=== PATIENT | female | born 1965 | race Caucasian/White ===

== ENCOUNTER 2017-03-09 14:50 | Emergency (ER) | payer OTHER ==
[2017-03-09] MEDS ORDERED: NS 1,000 ML IV ONE (16:06)
--- NOTE | 2017-03-09 16:10 | EDPHY ---
H & P Stated Complaint: [place],not feeling well since going to [facility] Time Seen by Provider: 03/09/17 15:34 HPI/ROS: CHIEF COMPLAINT: Lightheaded HISTORY OF PRESENT ILLNESS: The patient is a 51-year-old female who is been feeling fatigued and lightheaded intermittently since arriving here from [place] 1 week ago. She states that her symptoms seem to correlate with altitude. She has gone to [facility] twice and this is when her symptoms seem to worsen the most. They also worsened with exertion. Today she was walking around the [employer] [place] and had similar symptoms. She denies chest pain or shortness of breath. She denies leg pain or swelling. She denies nausea vomiting or diarrhea. She denies headache. He has no recent fevers or illnesses. No sick contacts. No trauma. REVIEW OF SYSTEMS: Constitutional: denies: chills, fever, recent illness, recent injury EENTM: denies: blurred vision, double vision, nose congestion Respiratory: denies: cough, shortness of breath Cardiac: See HPI, denies: chest pain, irregular heart rate, palpitations Gastrointestinal/Abdominal: denies: abdominal pain, diarrhea, nausea, vomiting, blood streaked stools Genitourinary: denies: dysuria, frequency, hematuria, pain Musculoskeletal: denies: joint pain, muscle pain Skin: denies: lesions, rash, jaundice, bruising Neurological: denies: headache, numbness, paresthesia, tingling, dizziness, weakness Hematologic/Lymphatic: denies: blood clots, easy bleeding, easy bruising Immunologic/allergic: denies: HIV/AIDS, transplant EXAM: GENERAL: Well-appearing, well-nourished and in no acute distress. HEAD: Atraumatic, normocephalic. EYES: Pupils equal round and reactive to light, extraocular movements intact, sclera anicteric, conjunctiva are normal. ENT: TMs normal, nares patent, oropharynx clear without exudates. Moist mucous membranes. NECK: Normal range of motion, supple without lymphadenopathy or JVD. LUNGS: Breath sounds clear to auscultation bilaterally and equal. No wheezes rales or rhonchi. HEART: Regular rate and rhythm without murmurs, rubs or gallops. ABDOMEN: Soft, nontender, normoactive bowel sounds. No guarding, no rebound. No masses appreciated. BACK: No CVA tenderness, no spinal tenderness, step-offs or deformities EXTREMITIES: Normal range of motion, no pitting or edema. No clubbing or cyanosis. NEUROLOGICAL: Cranial nerves II through XII grossly intact. Normal speech, normal gait. 5/5 strength, normal movement in all extremities, normal sensation PSYCH: Normal mood, normal affect. SKIN: Warm, dry, normal turgor, no visible rashes or lesions. Source: Patient Exam Limitations: No limitations - Personal History LMP (Females 10-55): Post Menopausal Current Tetanus Diphtheria and Acellular Pertussis (TDAP): Yes - Medical/Surgical History Hx Asthma: No Hx Chronic Respiratory Disease: No Hx Diabetes: No Hx Cardiac Disease: No Hx Renal Disease: No Hx Cirrhosis: No Hx Alcoholism: No Other PMH: thyroid - Family History Significant Family History: No pertinent family hx - Social History Smoking Status: Never smoked Alcohol Use: Sober Drug Use: None Constitutional: Initial Vital Signs Temperature (C) 36.7 C 03/09/17 15:00 Heart Rate 73 03/09/17 15:00 Respiratory Rate 18 03/09/17 15:00 Blood Pressure 152/77 H 03/09/17 15:00 O2 Sat (%) 98 03/09/17 15:00 O2 Delivery Mode Room Air Allergies/Adverse Reactions: Penicillins Allergy (Intermediate, Verified 03/09/17 15:08) Hives Home Medications: Medication Instructions Recorded Levothyroxine [Synthroid 100 mcg 100 mcg PO DAILY06 03/09/17 (*)] Medical Decision Making - Diagnostics EKG Interpretation: An EKG obtained and was read and documented in trace view. Please see trace view for full reading and report. Sinus rhythm, no acute ischemic changes Imaging Results: Imaging Impressions Chest X-Ray 03/09/17 16:06 Impression: Mild peribronchial thickening suggesting airways disease/bronchitis. Imaging: Discussed imaging studies w/ meter/relay craftsman Radiologist, I viewed and interpreted images myself ED Course/Re-evaluation: We discussed the test in x-ray results. I suspect the patient has a very mild form of inflammatory reaction to the high-altitude. She has not had a fever or productive cough. No recent infections or illness. She does not have any history of asthma or COPD. I will give her a dose of Decadron and treat her with albuterol symptomatically. She leaves tomorrow to go [place]. We discussed indications for returning and the importance of follow-up. Differential Diagnosis: Partial list of the Differential diagnosis considered include but were not limited to; bronchitis, pneumonia, PE, high-altitude pulmonary edema and although unlikely based on the history and physical exam, I also considered acute coronary disease, arrhythmia, pneumothorax, CVA. I discussed these differential diagnoses and the plan with the patient as well as the usual and expected course. The patient understands that the diagnosis is provisional and that in medicine we are not always correct and that further workup is often warranted. Usual and customary warnings were given. All of the patient's questions were answered. The patient was instructed to return to the emergency department should the symptoms at all worsen or return, otherwise to followup with the physician as we discussed. - Data Points Laboratory Results: Laboratory Results 03/09/17 16:15 03/09/17 16:15 03/09/17 03/09/17 03/09/17 16:15 16:15 16:15 WBC 5.44 10^3/uL 10^3/uL (3.80-9.50) RBC 5.20 10^6/uL 10^6/uL (4.18-5.33) Hgb 15.2 g/dL g/dL (12.6-16.3) Hct 45.2 % % (38.0-47.0) MCV 86.9 fL fL (81.5-99.8) MCH 29.2 pg pg (27.9-34.1) MCHC 33.6 g/dL g/dL (32.4-36.7) RDW 12.8 % % (11.5-15.2) Plt Count 323 10^3/uL 10^3/uL (150-400) MPV 10.0 fL fL (8.7-11.7) Neut % (Auto) 67.2 % % (39.3-74.2) Lymph % (Auto) 21.7 % % (15.0-45.0) Cameron % (Auto) 9.7 % % (4.5-13.0) Eos % (Auto) 0.6 % % (0.6-7.6) Baso % (Auto) 0.4 % % (0.3-1.7) Nucleat RBC Rel Count 0.0 % % (0.0-0.2) Absolute Neuts (auto) 3.66 10^3/uL 10^3/uL (1.70-6.50) Absolute Lymphs (auto) 1.18 10^3/uL 10^3/uL (1.00-3.00) Absolute Monos (auto) 0.53 10^3/uL 10^3/uL (0.30-0.80) Absolute Eos (auto) 0.03 10^3/uL 10^3/uL (0.03-0.40) Absolute Basos (auto) 0.02 10^3/uL 10^3/uL (0.02-0.10) Absolute Nucleated RBC 0.00 10^3/uL 10^3/uL (0-0.01) Immature Gran % 0.4 % % (0.0-1.1) Immature Gran # 0.02 10^3/uL 10^3/uL (0.00-0.10) D-Dimer < 0.27 ug/mLFEU ug/mLFEU (0.00-0.50) Sodium 141 mEq/L mEq/L (134-144) Potassium 3.8 mEq/L mEq/L (3.5-5.2) Chloride 101 mEq/L mEq/L (97-110) Carbon Dioxide 27 mEq/l mEq/l (22-31) Anion Gap 13 mEq/L mEq/L (8-16) BUN 16 mg/dL mg/dL (7-23) Creatinine 0.9 mg/dL mg/dL (0.6-1.0) Estimated GFR > 60 Glucose 102 mg/dL H mg/dL (70-100) Calcium 10.0 mg/dL mg/dL (8.5-10.4) Troponin I < 0.012 ng/mL ng/mL (0-0.034) Medications Given: Discontinued Medications Albuterol Sulfate (Proventil Inh Prepack) 1 mdi TAKEHOME EDNOW ONE Stop: 03/09/17 16:54 Last Admin: 03/09/17 17:30 Dose: 1 mdi Albuterol/Ipratropium (Duoneb) 3 ml IH EDNOW ONE Stop: 03/09/17 16:54 Last Admin: 03/09/17 17:05 Dose: 3 ml Dexamethasone (Decadron) 10 mg PO EDNOW ONE Stop: 03/09/17 16:54 Last Admin: 03/09/17 16:59 Dose: 10 mg Sodium Chloride (Ns) 1,000 mls @ 0 mls/hr IV ONCE ONE; Wide Open PRN Reason: Protocol Stop: 03/09/17 16:07 Last Admin: 03/09/17 16:19 Dose: 1,000 mls Departure - Departure Disposition: Home, Routine, Self-Care Clinical Impression: Bronchitis Condition: Fair Instructions: Albuterol (By breathing), Acute Bronchitis (ED) Additional Instructions: Use the inhaler as needed up to 2 puffs every 4 hours. Referrals: KAVITHA MOYER [Other] - As per Instructions Stand Alone Forms: Airline Excuse
--- NOTE | 2017-03-09 16:10 | CPEKG ---
Heart Rate: 60 RR Interval: 1000 P-R Interval: 184 QRSD Interval: 76 QT Interval: 408 QTC Interval: 408 P [place]: 7 QRS [place]: 12 T Wave [place]: 56 EKG Severity - NORMAL ECG - EKG Impression: SINUS RHYTHM Electronically Signed By: Dada Zuniga 09-Mar-2017 16:39:53
[2017-03-09 16:24] LABS: % IMMATURE GRANULYOCYTES 0.4 % (0.0-1.1); ABSOLUTE IMMATURE GRANULOCYTES 0.02 10^3/uL (0.00-0.10); ADD DIFF? NO; ADD MORPH? NO; ADD SCAN? NO; ATYPICAL LYMPHOCYTE FLAG 10 (0-99); FRAGMENT RBC FLAG 0 (0-99); HEMATOCRIT 45.2 % (38.0-47.0); HEMOGLOBIN 15.2 g/dL (12.6-16.3); LEFT SHIFT FLG 10 (0-99); LIPEMIA HEMOLYSIS FLAG 80 (0-99); MEAN CELL HEMOGLOBIN 29.2 pg (27.9-34.1); MEAN CELL HEMOGLOBIN CONCENTR. 33.6 g/dL (32.4-36.7); MEAN CELL VOLUME 86.9 fL (81.5-99.8); PLATELET CLUMPS FLAG 0 (0-99); PLATELET COUNT 323 10^3/uL (150-400); RED CELL DISTRIBUTION WIDTH 12.8 % (11.5-15.2)
[2017-03-09 16:33] LABS: ANION GAP 13 mEq/L (8-16); CARBON DIOXIDE 27 mEq/l (22-31); CHLORIDE 101 mEq/L (97-110); CREATININE 0.9 mg/dL (0.6-1.0); GLOMERULAR FILTRATION RATE > 60; GLUCOSE 102 mg/dL (70-100); POTASSIUM 3.8 mEq/L (3.5-5.2); SODIUM 141 mEq/L (134-144)
[2017-03-09 16:44] LABS: TROPONIN I < 0.012 ng/mL (0-0.034)
[2017-03-09] MEDS ORDERED: ALBUTEROL INH PREPACK MDI TAKEHOME ONE (16:53)
[2017-03-09] MEDS ORDERED: IPRATROPIUM/ALBUTEROL 3 ML DEYVIAL IH ONE (16:53)
[2017-03-09] MEDS ORDERED: DEXAMETHASONE 4 MG TAB PO ONE (16:53)
[2017-03-09 17:41] VITALS: BP 132/86; PULSE 70; RESP 16; TEMP 98.2; O2SAT 94
== END 2017-03-09 17:41 | disposition home or self-care (01) ==
DX: J40 Bronchitis, not specified as acute or chronic (principal)